=== PATIENT | male | born 1955 | race Caucasian/White ===

== ENCOUNTER 2018-02-05 12:24 | Emergency (ER) | payer MEDICAID ==
[~2018-02-05] VITALS: Ht 177.8 cm; Wt 76.6 kg
[~2018-02-05 12:24] MED LIST: AMOX1TAB64 PO; HYDR-3240 PO
[2018-02-05 12:27] VITALS: BP 118/83
== END 2018-02-05 13:57 | disposition home or self-care (01) ==
LOC: ED 13:56
DX: L03.115 Cellulitis of right lower limb (principal); B35.3 Tinea pedis; F17.200 Nicotine dependence, unspecified, uncomplicated
CPT/HCPCS: 99283